=== PATIENT | female | born 1995 | race Caucasian/White ===

== ENCOUNTER 2018-06-08 09:02 | Emergency (ER) | payer SELFPAY ==
[~2018-06-08] VITALS: Ht 157.5 cm; Wt 75.0 kg
[2018-06-08 09:10] VITALS: Ht 157.5 cm; Wt 75.0 kg
[2018-06-08 10:43] VITALS: BP 116/87
== END 2018-06-08 10:43 | disposition home or self-care (01) ==
LOC: D.ER 09:02
DX: S61.211A Laceration without foreign body of left index finger without damage to nail, initial encounter (principal); W25.XXXA Contact with sharp glass, initial encounter; Y93.89 Activity, other specified; Y92.89 Other specified places as the place of occurrence of the external cause